=== PATIENT | female | born 1995 | race Caucasian/White ===

== ENCOUNTER 2019-01-18 05:00 | Inpatient (IN) | payer MEDICAID ==
[~2019-01-18] VITALS: Ht 157.5 cm; Wt 91.8 kg
[~2019-01-18 05:00] MED LIST: PREN-19 PO
[2019-01-18] MEDS ORDERED: LACTATED RINGER'S 1,000 ML IV PRN (05:20)
[2019-01-18] MEDS ORDERED: LACTATED RINGER'S 1,000 ML IV SCH (05:20)
[2019-01-18] MEDS ORDERED: METHYLERGONOVINE 0.2 MG INJ IM PRN ×2 (05:30→10:30)
[2019-01-18] MEDS ORDERED: LIDOCAINE 1% (MPF) 30 ML INJ INJ PRN (05:30)
[2019-01-18] MEDS ORDERED: OXYTOCIN 30 UNITS/LR 500 ML IV PRN ×2 (05:30→10:30)
[2019-01-18] MEDS ORDERED: MISOPROSTOL 200 MCG TAB PR PRN ×2 (05:30→10:30)
[2019-01-18] MEDS ORDERED: BUTORPHANOL 2 MG INJ IV PRN ×2 (05:30)
[2019-01-18] MEDS ORDERED: OXYTOCIN 30 UNITS/LR 500 ML IV SCH ×2 (05:30)
[2019-01-18] MEDS ORDERED: CARBOPROST 250 MCG INJ IM PRN ×2 (05:30→10:30)
[2019-01-18] MEDS ORDERED: AMPICILLIN 2 GM/NS (PMX) 100 ML IV ONE (05:30)
[2019-01-18] MEDS ORDERED: IBUPROFEN 600 MG TAB PO PRN (05:30)
[2019-01-18] MEDS ORDERED: AMPICILLIN 1 GM/NS (PMX) 50 ML IV SCH (09:30)
[2019-01-18 10:00] VITALS: BP 90/50; PULSE 62; RESP 19
[2019-01-18] MEDS ORDERED: OXYCODONE/ASPIRIN (4.88/325) TAB PO PRN ×2 (10:30)
[2019-01-18] MEDS ORDERED: BENZOCAINE 20% 56 ML SPRAY TOP PRN (10:30)
[2019-01-18] MEDS ORDERED: WITCH HAZEL/GLYCERIN PAD PR PRN (10:30)
[2019-01-18] MEDS ORDERED: ZOLPIDEM 5 MG TAB PO PRN (10:30)
[2019-01-18] MEDS ORDERED: LANOLIN HPA 1 PKT TOP PRN (10:30)
[2019-01-18 12:00] VITALS: BP 100/66; PULSE 57; RESP 20
[2019-01-18] MEDS: IBUPROFEN 600 MG TAB PO SCH ×3 (12:00→23:42)
[2019-01-18 17:53] VITALS: BP 111/61; PULSE 55; RESP 18
[2019-01-18 20:35] VITALS: BP 95/55; PULSE 75; RESP 18
[2019-01-18] MEDS: SENNA/DOCUSATE NA (8.6MG/50MG) TAB PO SCH (21:54)
[2019-01-19] VITALS: BP 100/52; PULSE 78; RESP 18
[2019-01-19 03:46] VITALS: BP 97/60; PULSE 68; RESP 17
[2019-01-19] MEDS: IBUPROFEN 600 MG TAB PO SCH ×3 (05:45→18:04)
[2019-01-19 08:00] VITALS: BP 102/57; PULSE 65; RESP 18
[2019-01-19] MEDS: SENNA/DOCUSATE NA (8.6MG/50MG) TAB PO SCH ×2 (11:28→18:03)
[2019-01-19 15:54] VITALS: BP 106/58; PULSE 67; RESP 18
[2019-01-19 19:50] VITALS: BP 111/57; PULSE 77; RESP 17
[2019-01-20] MEDS: IBUPROFEN 600 MG TAB PO SCH ×2 (00:33→05:40)
[2019-01-20 04:00] VITALS: BP 104/55; PULSE 73; RESP 18
[2019-01-20 08:00] VITALS: BP 109/60; PULSE 65; RESP 18
[2019-01-20] MEDS ORDERED: DIPHTH/TET/ACEL PERTUSS (ADULT) 0.5 ML VIAL IM* ONE (09:00)
[2019-01-20] MEDS: SENNA/DOCUSATE NA (8.6MG/50MG) TAB PO SCH (09:00)
== END 2019-01-20 13:14 | disposition home or self-care (01) | DRG 807 ==
LOC: OBT 05:00 → L-D 05:00 → OBT 05:06 → L-D 05:06 → PP1 09:35
PROVIDERS: ADMIT Obstetrics & Gynecology; ATTEND Obstetrics & Gynecology
PROC: 10E0XZZ Delivery of Products of Conception, External Approach (ICD-10-PCS; principal; 2019-01-18)
DX: O80 Encounter for full-term uncomplicated delivery (principal); Z37.0 Single live birth; Z3A.38 38 weeks gestation of pregnancy
CPT/HCPCS: 80307; 85025; 85610; 85730; 86592; 86850; 86900; 86901; 87340; G0463; J0290; J2590; J7120